=== PATIENT | female | born 1960 | race Caucasian/White ===

== ENCOUNTER → 2019-10-30 | Outpatient (CLI) | payer MEDICARE, MEDICAID ==
[~2019-10-30] MED LIST: ALBU8.5H INH; ALBU83IN INH; AMIT25TA PO; ATEN50TA2 PO; LEVO100T5 PO; LEVO88TA3 PO; LIDO5DIS41 TD; LOSA50TA88 PO; MUCI1TAB16 PO; NAPR250T4 PO; TYLETAB14 PO
== END ==
LOC: M LABSMTC 09:31
PROVIDERS: ATTEND Anesthesiology
DX: Z01.818 Encounter for other preprocedural examination (principal); Z11.59 Encounter for screening for other viral diseases
CPT/HCPCS: C9803; U0003

== ENCOUNTER 2019-11-02 06:18 | Day surgery (SDC) | payer MEDICARE, MEDICAID ==
[~2019-11-02] VITALS: Ht 165.1 cm; Wt 107.5 kg
[~2019-11-02 06:18] MED LIST changes: +ACETAMINOPHEN 325 MG TAB PO PRN
[2019-11-02] MEDS ORDERED: BALANCED SALT IRRIGATION SOLUTION 500ML BAG (FOR OR EYE MACHINE) As Ordered ONE (06:42)
[2019-11-02] MEDS ORDERED: POVIDONE-IODINE 5% OPHTH PREP SOL 30ML As Ordered ONE (06:42)
[2019-11-02] MEDS ORDERED: LIDOCAINE 1% SDV 5ML VIAL As Ordered ONE (06:42)
[2019-11-02] MEDS ORDERED: CEFUROXIME 1MG/0.1ML INTRACAMERAL INJ As Ordered ONE (06:43)
[2019-11-02] MEDS ORDERED: HEALON DUET PRO(HEALON 10MG/ML 0.55ML & HEALON ENDOCOAT 30MG/ML 0.85ML) As Ordered ONE (06:43)
[2019-11-02] MEDS ORDERED: LIDOCAINE 3.5 % 1ML OPHTH TOPICAL GEL OU ONE (07:00)
[2019-11-02] MEDS ORDERED: TROPICAMIDE 1% OPHTH SOLN 2ML OS ONE (07:00)
[2019-11-02] MEDS ORDERED: OFLOXACIN 0.3 % (OCUFLOX) OPTH SOL 5ML OS ONE (07:00)
[2019-11-02] MEDS ORDERED: CYCLOPENTOLATE 2% OPHTH SOLN 2ML BTL OS ONE (07:00)
[2019-11-02] MEDS ORDERED: PHENYLEPHRINE HCL 10 % OPHTH. SOL 5ML OS PRN (07:00)
[2019-11-02] MEDS ORDERED: PHENYLEPHRINE 2.5% OPHTH SOL 2ML OS ONE (07:00)
[2019-11-02] MEDS ORDERED: PROPARACAINE 0.5% OPHTH SOL 15ML OS PRN (07:01)
[2019-11-02] MEDS ORDERED: fentaNYL 100 MCG/2 ML INJECTION (J3010) As Ordered ONE (07:39)
[2019-11-02] MEDS ORDERED: MIDAZOLAM INJ 2MG/2ML VIAL (J2250 PER 1MG) As Ordered ONE (07:40)
[2019-11-02 08:45] VITALS: BP 180/102
[2019-11-02] MEDS ORDERED: TRIMETHOBENZAMIDE 300 MG CAP PO PRN (09:00)
[2019-11-02] MEDS ORDERED: KETOROLAC 0.5% OPHTH SOLN OS ONE (09:00)
== END 2019-11-02 08:57 | disposition home or self-care (01) ==
LOC: M SDC 06:18
PROVIDERS: ATTEND Ophthalmology
DX: H25.12 Age-related nuclear cataract, left eye (principal); I10 Essential (primary) hypertension; E78.5 Hyperlipidemia, unspecified; E03.9 Hypothyroidism, unspecified; F17.218 Nicotine dependence, cigarettes, with other nicotine-induced disorders; M10.9 Gout, unspecified; B18.2 Chronic viral hepatitis C; Z88.2 Allergy status to sulfonamides; Z91.040 Latex allergy status; Z79.899 Other long term (current) drug therapy
CPT/HCPCS: 66984; 92015; J2250; J3010; V2632

== ENCOUNTER 2019-11-30 06:40 | Day surgery (SDC) | payer MEDICARE, MEDICAID ==
[~2019-11-30 06:40] MED LIST changes: -ACETAMINOPHEN 325 MG TAB PO PRN
[2019-11-30] MEDS ORDERED: PHENYLEPHRINE 2.5% OPHTH SOL 2ML ONE (06:48)
[2019-11-30] MEDS ORDERED: OFLOXACIN 0.3 % (OCUFLOX) OPTH SOL 5ML ONE (06:48)
[2019-11-30] MEDS ORDERED: TROPICAMIDE 1% OPHTH SOLN 2ML ONE (06:48)
[2019-11-30] MEDS ORDERED: LIDOCAINE 3.5 % 1ML OPHTH TOPICAL GEL ONE (06:48)
[2019-11-30] MEDS ORDERED: CYCLOPENTOLATE 2% OPHTH SOLN 2ML BTL ONE (06:48)
[2019-11-30] MEDS ORDERED: HEALON DUET PRO(HEALON 10MG/ML 0.55ML & HEALON ENDOCOAT 30MG/ML 0.85ML) ONE (07:01)
[2019-11-30] MEDS ORDERED: BALANCED SALT IRRIGATION SOLUTION 500ML BAG (FOR OR EYE MACHINE) ONE (07:01)
[2019-11-30] MEDS ORDERED: CEFUROXIME 1MG/0.1ML INTRACAMERAL INJ ONE (07:01)
[2019-11-30] MEDS ORDERED: POVIDONE-IODINE 5% OPHTH PREP SOL 30ML ONE (07:01)
[2019-11-30] MEDS ORDERED: LIDOCAINE 1% SDV 5ML VIAL ONE (07:01)
[2019-11-30] MEDS ORDERED: fentaNYL 100 MCG/2 ML INJECTION (J3010) ONE (07:06)
[2019-11-30] MEDS ORDERED: MIDAZOLAM INJ 2MG/2ML VIAL (J2250 PER 1MG) ONE ×2 (07:06→07:48)
--- NOTE | 2020-01-28 09:26 | RO ---
DATE OF OPERATION: 11/30/2019 PREOPERATIVE DIAGNOSIS: Age-related nuclear cataract, right eye. POSTOPERATIVE DIAGNOSIS: Age-related nuclear cataract, right eye. PROCEDURE: Phacoemulsification posterior chamber intraocular lens implantation, right eye. ANESTHESIA: Topical sedation. LENS USED: [id number] with a 19.0 diopter. DETAILS OF PROCEDURE: The eye was prepped and draped in the usual fashion. Lid speculum was placed in the lid. A stab incision was made to the anterior chamber with a superblade. 1% non-preserved lidocaine was instilled and viscoelastic instilled. The eye was refixated, and a 2.4 mm Keratome made a clear corneal and temporal limbal incision. The lens was then hydrodissected, and then it was grooved in two meridians at the phacoemulsification. The lens was scrapped into four quadrants. Each quadrant was in good phacoemulsification. The remaining cortex was removed with I&A unit. The capsular bag was refilled with viscoelastic and the posterior chamber and intraocular lens were inserted into the capsular bag with no difficulty. Any remaining viscoelastic was removed with the I&A, and the wound was hydrated and balanced salt and ceftriaxone were instilled. The patient tolerated the procedure well, and went to the recovery room in stable condition. GABINO
== END 2019-11-30 08:20 | disposition home or self-care (01) ==
LOC: M SDC 06:40
PROVIDERS: ATTEND Ophthalmology
DX: H25.11 Age-related nuclear cataract, right eye (principal); E03.9 Hypothyroidism, unspecified; I10 Essential (primary) hypertension; E78.5 Hyperlipidemia, unspecified; J45.909 Unspecified asthma, uncomplicated; M10.9 Gout, unspecified; K57.92 Diverticulitis of intestine, part unspecified, without perforation or abscess without bleeding; B18.2 Chronic viral hepatitis C; F17.218 Nicotine dependence, cigarettes, with other nicotine-induced disorders; Z79.899 Other long term (current) drug therapy; Z88.2 Allergy status to sulfonamides; Z92.21 Personal history of antineoplastic chemotherapy
CPT/HCPCS: 66984; J2250; J3010; V2632